=== PATIENT | male | born 1985 | race Hispanic/Latino ===

== ENCOUNTER 2023-07-29 17:13 | Emergency (ER) | payer OTHER ==
[2023-07-29] MEDS ORDERED: HYDROCODONE/APAP 7.5/325 MG TAB ONE (17:42)
--- NOTE | 2023-07-29 19:01 | RAD REPORT ---
EXAM DESCRIPTION: OLIVER BURCH - 07/29/2023 6:14 pm CLINICAL HISTORY: SMASH INJURY COMPARISON: No comparisons TECHNIQUE: Left hand, 3 views. FINDINGS: Minimally displaced fractures involving the tuft of the third digit distal phalanx. [place] ing soft tissue swelling. There is no dislocation or periosteal reaction noted. Joint alignment is maintained. No foreign body or other soft tissue abnormality. IMPRESSION: Minimally displaced fractures of the tuft of the third digit distal phalanx.
[2023-07-29] MEDS ORDERED: LIDOCAINE 1% MPF 5 ML VIAL ONE (19:09)
--- NOTE | 2023-07-29 19:17 | ER ---
Nurse's Notes [facility] Name: Howard Ash Jr Age: 37 yrs Sex: Male : 1985 Arrival Date: 07/29/2023 Time: 17:13 Bed 12 Private MD: Diagnosis: Subungual Hematoma Presentation: 07/29 17:22 Chief complaint: Patient states: "Yesterday, I hit my left middle finger with a hammer mb9 at work. It's swollen, bruised, and huts really bad". Coronavirus screen: Vaccine status: Patient reports being unvaccinated. Ebola Screen: No symptoms or risks identified at this time. Initial Sepsis Screen: Does the patient meet any 2 criteria? No. Patient's initial sepsis screen is negative. Does the patient have a suspected source of infection? No. Patient's initial sepsis screen is negative. Risk Assessment: Do you want to hurt yourself or someone else? Patient reports no desire to harm self or others. Onset of symptoms was July 29, 2023. 17:22 Method Of Arrival: Ambulatory 9 17:22 Acuity: SUMIT 4 mb9 Triage Assessment: 17:23 General: Appears in no apparent distress. Behavior is calm, cooperative. Pain: mb9 Complains of pain in left hand Quality of pain is described as throbbing, Pain began 1 day ago. Is intermittent, Aggravated by increased activity, repositioning. Neuro: Peters Agitation-Sedation Scale (RASS): 0 - Alert and Calm Level of Consciousness is awake, alert, obeys commands, Oriented to person, place, time, situation, Appropriate for age. Cardiovascular: Patient's skin is warm and dry. Respiratory: Airway is patent Respiratory effort is even, unlabored, Respiratory pattern is regular, symmetrical. GI: No signs and/or symptoms were reported involving the gastrointestinal system. : No signs and/or symptoms were reported regarding the genitourinary system. Derm: Bruising that is dark purple, on left hand. Musculoskeletal: Range of motion: intact in all extremities. Injury Description: Crush injury sustained to left middle finger. Historical: - Allergies: 17:23 No Known Allergies; mb9 - Home Meds: 17:23 None [Active]; mb9 - PMHx: 17:23 None; mb9 - PSHx: 17:23 None; mb9 - Immunization history:: Adult Immunizations up to date. - Social history:: Smoking status: Patient reports the use of cigarette tobacco products, denies chronic smoking, but will smoke occasionally. Screenin:30 [facility] ED Fall Risk Assessment (Adult) History of falling in the last 3 months, ap3 including since admission No falls in past 3 months (0 pts). Abuse screen: Denies threats or abuse. Nutritional screening: No deficits noted. Tuberculosis screening: No symptoms or risk factors identified. Assessment: 17:30 General: Appears in no apparent distress. Behavior is calm, cooperative. Pain: ap3 Complains of pain in palmar aspect of distal phalanx of left middle finger. Neuro: Level of Consciousness is awake, alert, obeys commands, Oriented to person, place, time, situation. Cardiovascular: Patient's skin is warm and dry. Respiratory: Airway is patent Respiratory effort is even, unlabored, Respiratory pattern is regular, symmetrical. Vital Signs: 17:22 BP 144 / 99; Pulse 60; Resp 16; Temp 98; Pulse Ox 100% on R/A; Weight 86.18 kg; Height mb9 5 ft. 11 in. ; Pain 6/10; 19:24 BP 126 / 78; Pulse 62; Resp 18 S; Pulse Ox 97% on R/A; as6 17:22 Body Mass Index 26.50 (86.18 kg, 180.34 cm) mb9 17:22 Pain Scale: Adult mb9 ED Course: 17:17 Patient arrived in ED. im 17:17 [facility] sb[facility] 17:17 Mabel Montana MD is Attending Physician. sb4 17:21 Arm band placed on. mb9 17:23 Triage completed. mb9 17:26 Bere Monsalve, JEREMIAH is Primary Nurse. ap3 17:30 Patient has correct armband on for positive identification. Bed in low position. Call ap3 light in reach. Adult w/ patient. Pulse ox on. NIBP on. 18:16 Hand Left 3 View XRAY In Process Unspecified. EDMS 19:25 No provider procedures requiring assistance completed. Patient did not have IV access as6 during this emergency room visit. Administered Medications: 17:30 Drug: Hydrocodone-Acetaminophen PO (7.5 mg-325 mg) 1 tabs PO once Route: PO; ap3 19:26 Follow up: Response: No adverse reaction as6 19:17 Drug: Lidocaine Infiltration (1 %) 20 ml 20 ml Infiltration once; to bedside {Note: as6 administered by provider .} Volume: 20 ml; Route: Infiltration; 19:26 Follow up: Response: No adverse reaction as6 Medication: 19:25 VIS not applicable for this client. as6 Outcome: 19:16 Discharge ordered by . sb4 19:25 Discharged to home ambulatory, with significant other, as6 19:25 Condition: stable 19:25 Discharge instructions given to patient, Instructed on discharge instructions, follow up and referral plans. Demonstrated understanding of instructions, follow-up care, 19:26 Patient left the ED. as6 Signatures: Dispatcher [employer] Bere Higuera RN RN ap3 Russell Infante RN RN as6 Saira Bravo, PADellaC PADellaC Shannan Pierce RN RN mb9 Nadege Ackerman
--- NOTE | 2023-07-29 19:17 | EDPHYS ---
Physician Documentation [facility] Name: Howard Ash Jr Age: 37 yrs Sex: Male : 1985 Arrival Date: 07/29/2023 Time: 17:13 Bed 12 Private MD: ED Physician Mabel Montana HPI: 07/29 18:22 This 37 yrs old Male presents to ER via Ambulatory with complaints of Finger sb4 Injury - Left hand middle finger. 18:22 Patient states that he accidentally smashed his distal left middle finger with a hammer sb4 yesterday at work. He states that the swelling, bruising, and pain have slowly increased. He has been taking ibuprofen for the pain. No decrease sensation, no numbness or tingling. Reports pain with passive ROM of left middle DIP. Historical: - Allergies: 17:23 No Known Allergies; mb9 - Home Meds: 17:23 None [Active]; mb9 - PMHx: 17:23 None; mb9 - PSHx: 17:23 None; mb9 - Immunization history:: Adult Immunizations up to date. - Social history:: Smoking status: Patient reports the use of cigarette tobacco products, denies chronic smoking, but will smoke occasionally. ROS: 18:22 Constitutional: Negative for fever, chills, and weight loss, sb4 18:22 MS/extremity: Positive for decreased range of motion, ecchymosis, pain, swelling, tenderness, of the dorsal aspect of distal phalanx of left middle finger and left middle fingernail, 18:22 All other systems are negative, Exam: 18:22 Constitutional: This is a well developed, well nourished patient who is awake, alert, sb4 and in no acute distress. Head/Face: Normocephalic, atraumatic. Eyes: Extra-ocular motions intact. Periorbital areas with no swelling, redness, or edema. ENT: Mucous membranes moist. Cardiovascular: Regular rate and rhythm with a normal S1 and S2. Respiratory: Lungs have equal breath sounds bilaterally, clear to auscultation and percussion. No rales, rhonchi or wheezes noted. No increased work of breathing, no retractions or nasal flaring. Neuro: Awake and alert, GCS 15, oriented to person, place, time, and situation. Motor strength 5/5 in all extremities. Sensory grossly intact. 18:22 Musculoskeletal/extremity: ROM: limited passive range of motion due to pain, in the dorsal aspect of distal phalanx of left middle finger, Circulation is intact in all extremities. Pulses: are normal with no appreciated deficits, Perfusion: the extremity is normally perfused throughout, Sensation intact. Joints: the DIP of left middle finger displays painful range of motion, swelling, tenderness, 18:22 Skin: injury, contusion(s), that are superficial, of the dorsal aspect of distal phalanx of left middle finger, Vital Signs: 17:22 BP 144 / 99; Pulse 60; Resp 16; Temp 98; Pulse Ox 100% on R/A; Weight 86.18 kg; Height mb9 5 ft. 11 in. ; Pain 6/10; 19:24 BP 126 / 78; Pulse 62; Resp 18 S; Pulse Ox 97% on R/A; as6 17:22 Body Mass Index 26.50 (86.18 kg, 180.34 cm) mb9 17:22 Pain Scale: Adult mb9 Procedures: 20:53 Nerve block: (digital) of dorsal aspect of proximal phalanx of left middle finger and sb4 palmar aspect of proximal phalanx of left middle finger Medication: Lidocaine 1% without epinephrine Amount: 5 mls were injected, Effect: the patient's symptoms are improved, moderately, Set up for procedure. Performed by Saira Bravo PA-C Patient tolerated well. nail trephination of left middle nail, small puncture wound made in nail with 18 gauge needle, moderate amount of blood expressed, hematoma successfully drained, patient tolerated well. MDM: 17:18 Patient medically screened. sb4 18:33 Differential diagnosis: dislocation, closed fracture, contusion, subungual hematoma. sb4 20:53 Data reviewed: vital signs, nurses notes, radiologic studies, I have discussed the sb4 patient's presentation/case with the attending Emergency Department Physician; and as a result, I will discharge patient. Independent interpretation of the following test(s) in the Emergency Department X-Ray: My interpretation is my interpretation of the hand xray images are acute tuft fracture of left middle distal phalanx. Counseling: I had a detailed discussion with the patient and/or guardian regarding the historical points, exam findings, and any diagnostic results supporting the discharge/admit diagnosis, radiology results, to return to the emergency department if symptoms worsen or persist or if there are any questions or concerns that arise at home. 07/29 17:22 Order name: Hand Left 3 View XRAY; Complete Time: 19:17 sb4 Administered Medications: 17:30 Drug: Hydrocodone-Acetaminophen PO (7.5 mg-325 mg) 1 tabs PO once Route: PO; ap3 19:26 Follow up: Response: No adverse reaction as6 19:17 Drug: Lidocaine Infiltration (1 %) 20 ml 20 ml Infiltration once; to bedside {Note: as6 administered by provider .} Volume: 20 ml; Route: Infiltration; 19:26 Follow up: Response: No adverse reaction as6 Disposition Summary: 07/29/23 19:16 Discharge Ordered Notes: Location: Home sb4 Condition: Stable sb4 Diagnosis - Subungual Hematoma sb4 Followup: sb4 - With: Private Physician - When: As needed - Reason: Recheck today's complaints, Re-evaluation by your physician Discharge Instructions: - Discharge Summary Sheet sb4 - Subungual Hematoma, [id number] sb4 Forms: - Medication Reconciliation Form sb4 - Thank You Letter sb4 - Antibiotic Education sb4 - Prescription Opioid Use sb4 - Patient Portal Instructions sb4 - Leadership Thank You Letter sb4 Signatures: Dispatcher [employer] Bere Higuera RN RN ap3 Russell Infante RN RN as6 Saira Bravo PA-C PA-C sb4 Shannan [place] RN RN mb9 Corrections: (The following items were deleted from the chart) 18:25 18:22 Patient states that he accidentally smashed his distal left middle finger with a sb4 hammer yesterday at work. He states that the swelling, bruising, and pain have slowly increased. He has been taking ibuprofen for the pain. No decrease sensation, no numbness or tingling. Reports pain with passive ROM of distal PIP. sb4
[2023-07-29 21:37] VITALS: TEMP 98
[2023-07-29 21:38] VITALS: BP 126/78; O2SAT 97
== END 2023-07-29 19:26 | disposition home or self-care (01) ==
LOC: ER 17:13
DX: S60.132A Contusion of left middle finger with damage to nail, initial encounter (principal)
CPT/HCPCS: 73130; J2001